=== PATIENT | female | born 2005 | race Caucasian/White ===

== ENCOUNTER 2023-11-01 12:46 | Emergency (ER) | payer OTHER, SELFPAY ==
[2023-11-01 12:50] VITALS: BP 129/79; PULSE 120; RESP 18; TEMP 36.7; O2SAT 100
--- NOTE | 2023-11-01 14:00 | PC.NURSE ---
patient to desk and stated she was leaving. advised to return if symptoms get worse.
== END 2023-11-01 14:11 | disposition left against medical advice (07) ==
PROVIDERS: PCP Student in an Organized Health Care Education/Training Program
DX: R11.2 Nausea with vomiting, unspecified (principal)
CPT/HCPCS: 99199

== ENCOUNTER 2024-07-04 09:49 | Outpatient (CLI) | payer OTHER, SELFPAY ==
--- NOTE | ~2024-07-04 | MM_ITS ---
EXAMINATION: MM diagnostic sunita RT w estephanie HISTORY: Probable right breast lump. TECHNIQUE: Additional 3-D tomosynthesis images of the right breast were performed and synthetic 2-D i mages were generated. CAD analysis was submitted and interpreted. COMPARISON: Ultrasound dated 07/04/2024 BREAST PARENCHYMAL COMPOSITION: Not Dense: The breasts are almost entirely fatty. FINDINGS: There are no suspicious masses, calcifications or architectural distortion in the right brant ast to suggest malignancy. IMPRESSION: 1. No mammographic evidence for malignancy in the right breast. 2. Routine yearly screening mammogram and regular clinical breast examination are recommended. BI-RADS Category 1: Negative Reviewed, dictated and finalized at location B. 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 No mammographic evidence for malignancy in the right breast. 2. Routine yearly screening mammogram and regular clinical breast examination a re recommended. BI-RADS Category 1: Negative
--- NOTE | ~2024-07-04 | US_ITS ---
US breast RT limited INDICATION: Palpable right breast lump TECHNIQUE: Dedicated Limited right breast ultrasound COMPARISON: No prior studies for comparison. FINDINGS: The right breast is/are composed of normal heterogeneous echotexture without focal solid or cystic mass. IMPRESSION: 1: Normal limited right breast ultrasound. BI-RADS CATEGORY 1 - NEGATIVE Reviewed, dictated and finalized at location B. 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
== END 2024-07-04 09:50 | disposition home or self-care (01) ==
LOC: MICIMG 09:51
PROVIDERS: PCP Nurse Practitioner Women's Health; Visit Provider Nurse Practitioner Women's Health
DX: N60.01 Solitary cyst of right breast (principal)
CPT/HCPCS: 76642; 77061; 77065; G0279